=== PATIENT | female | born 1990 | race Caucasian/White ===

== ENCOUNTER → 2019-05-08 | Outpatient (CLI) | payer BC, OTHER ==
[2019-05-08 12:09] LABS: THYROID STIMULATING HORMONE 3.58 uIU/ML (0.358-3.740)
[2019-05-08 12:10] LABS: ESTRADIOL 167.4 PG/ML; PROGESTERONE 18.02 NG/ML
== END ==
LOC: M LAB 10:25
PROVIDERS: ATTEND Obstetrics & Gynecology Reproductive Endocrinology
DX: E28.9 Ovarian dysfunction, unspecified (principal)

== ENCOUNTER → 2019-05-15 | Outpatient (CLI) | payer OTHER ==
[2019-05-15 08:39] LABS: HCG, SERUM QUANTITATIVE < 1.0 MIU/ML
[2019-05-15 09:27] LABS: PROGESTERONE 1.02 NG/ML
== END ==
LOC: M LAB 07:33
PROVIDERS: ATTEND Obstetrics & Gynecology Reproductive Endocrinology
DX: E28.9 Ovarian dysfunction, unspecified (principal)

== ENCOUNTER → 2023-11-01 | Outpatient (REF) | payer BC ==
[2023-11-01 18:22] LABS: BASO % 0.3 % (0.0-1.0); EOS # 0.1 10^3/uL (0.0-0.5); HEMATOCRIT 41.9 % (36.0-47.0); HEMOGLOBIN 13.9 g/dl (12.0-15.5); LYMPH # 1.3 10^3/uL (1.5-5.0); LYMPH % 22.7 % (24.0-44.0); MEAN CORPUSCULAR HEMOGLOBIN 29.4 pg (27.0-33.0); MEAN CORPUSCULAR HGB CONC 33.2 g/dl (32.0-36.5); MEAN CORPUSCULAR VOLUME 88.6 fl (80.0-96.0); MONO # 0.5 10^3/uL (0.0-0.8); MONO % 8.4 % (2.0-8.0); NEUTROPHILS # 3.9 10^3/uL (1.5-8.5); NEUTROPHILS % 67.3 % (36.0-66.0); PLATELET COUNT, AUTOMATED 201 10^3/uL (150-450); RED BLOOD COUNT 4.73 10^6/uL (4.00-5.40); WHITE BLOOD COUNT 5.7 10^3/uL (4.0-10.0)
[2023-11-01 18:46] LABS: ALKALINE PHOSPHATASE 92 U/L (46-116); ALT/SGPT 21 U/L (7.0-40); AST/SGOT 14 U/L (<34); BILIRUBIN,TOTAL 0.5 MG/DL (0.3-1.2); BLOOD UREA NITROGEN 18 MG/DL (9-23); CALCIUM LEVEL 9.3 MG/DL (8.5-10.1); CARBON DIOXIDE LEVEL 28 MMOL/L (20-31); CHLORIDE LEVEL 107 MMOL/L (98-107); CHOLESTEROL LEVEL 128 MG/DL (<200); CHOLESTEROL RISK RATIO 3.19 (<5); CREATININE FOR GFR 0.88 MG/DL (0.55-1.30); GLOMERULAR FILTRATION RATE > 60.0 (>60); GLUCOSE, FASTING 81 MG/DL (60-100); HDL CHOLESTEROL 40.1 MG/DL (>40); LDL CHOLESTEROL 69.3 MG/DL (<100); NON-HDL-C 87.9 MG/DL; POTASSIUM SERUM 4.5 MMOL/L (3.5-5.1); SODIUM LEVEL 142 MMOL/L (136-145); TOTAL PROTEIN 6.8 G/DL (5.7-8.2); TRIGLYCERIDES LEVEL 93 MG/DL (<150)
[2023-11-01 18:49] LABS: TOTAL 25(OH) VITAMIN D 29.8 NG/ML (20.0-100.0)
[2023-11-01 19:25] LABS: HEMOGLOBIN A1c 4.7 % (4.0-6.0)
== END ==
LOC: M LAB REF 16:35
PROVIDERS: ATTEND Nurse Practitioner Family
DX: E55.9 Vitamin D deficiency, unspecified (principal); E66.3 Overweight; R53.83 Other fatigue; Z11.9 Encounter for screening for infectious and parasitic diseases, unspecified

== ENCOUNTER → 2025-02-09 | Outpatient (RCR) | LOC: M EMPSKH 01-12 07:25 | PROVIDERS: ATTEND Family Medicine | DX: Z20.828 Contact with and (suspected) exposure to other viral communicable diseases (principal) ==

== ENCOUNTER 2025-04-27 11:55 | Emergency (ER) | payer BC ==
[~2025-04-27] VITALS: Ht 162.6 cm; Wt 65.8 kg
[2025-04-27 16:21] VITALS: TEMP 98.7
[2025-04-27] MEDS ORDERED: XARE15TA PO (17:45)
[2025-04-27 18:03] VITALS: BP 111/53; O2SAT 100
== END 2025-04-27 18:04 | disposition home or self-care (01) ==
LOC: M ED 11:55
DX: I82.612 Acute embolism and thrombosis of superficial veins of left upper extremity (principal); Z79.01 Long term (current) use of anticoagulants

== ENCOUNTER → 2025-05-12 | Outpatient (REF) | payer BC ==
[~2025-05-12] MED LIST: XARE15TA PO
[2025-05-12 14:35] LABS: BASO # 0.0 10^3/uL (0.0-0.2); BASO % 0.5 % (0.0-1.0); EOS # 0.1 10^3/uL (0.0-0.5); EOS % 1.1 % (0.0-3.0); LYMPH # 1.9 10^3/uL (1.5-5.0); LYMPH % 29.6 % (24.0-44.0); MONO # 0.6 10^3/uL (0.0-0.8); MONO % 8.9 % (2.0-8.0); NEUTROPHILS # 3.8 10^3/uL (1.5-8.5); NEUTROPHILS % 59.7 % (36.0-66.0); PLATELET COUNT, AUTOMATED 187 10^3/uL (150-450)
[2025-05-12 15:06] LABS: ALT/SGPT 15 U/L (7.0-40); AST/SGOT 15 U/L (<34); C REACTIVE PROTEIN QUANTITATIV < 0.50 MG/DL (<1.0); CALCIUM LEVEL 9.0 MG/DL (8.5-10.1); CARBON DIOXIDE LEVEL 28 MMOL/L (20-31); CHLORIDE LEVEL 105 MMOL/L (98-107); CREATININE FOR GFR 0.85 MG/DL (0.55-1.30); GLOMERULAR FILTRATION RATE > 90.0 (>60); POTASSIUM SERUM 4.4 MMOL/L (3.5-5.1); RHEUMATOID FACTOR QUANT < 3.5 IU/ML (<14); SODIUM LEVEL 140 MMOL/L (136-145)
== END ==
LOC: M LAB REF 13:59
PROVIDERS: ATTEND Nurse Practitioner Family
DX: E66.3 Overweight (principal); R69 Illness, unspecified; R53.83 Other fatigue

== ENCOUNTER → 2025-05-14 | Outpatient (CLI) | payer BC ==
[2025-05-14 13:06] LABS: INR 2.58
[2025-05-18 23:42] LABS: Anticardiolipin Ab, IGG < 2.0 GPL-U/mL (<20.0); Anticardiolipin Ab, IGM < 2.0 MPL-U/mL (<20.0); Anticardiolipin Ab, IgA < 2.0 APL-U/mL (<20.0); Beta-2 GLYCOPROTEIN I, IGG < 2.0 U/mL (<20.0); Beta-2 Glycoprotein I, IGA < 2.0 U/mL (<20.0); Beta-2 Glycoprotein I, IGM < 2.0 U/mL (<20.0)
[2025-05-21 01:06] LABS: APTT APSCOMP 54 sec (<=40); DRVTT Screen Seconds 86 sec (<=45)
== END ==
LOC: M LAB 11:18
PROVIDERS: ATTEND Nurse Practitioner Family
DX: I82.612 Acute embolism and thrombosis of superficial veins of left upper extremity (principal)